=== PATIENT | female | born 1965 | race Caucasian/White ===

== ENCOUNTER 2017-04-26 09:08 | Emergency (ER) | payer MEDICAID ==
[~2017-04-26] VITALS: Ht 170.2 cm; Wt 59.0 kg
[2017-04-26 09:10] VITALS: Ht 170.2 cm; Wt 59.0 kg
[2017-04-26] MEDS ORDERED: OMEP40CA6 PO (10:13)
[2017-04-26] MEDS ORDERED: RANI150T9 PO (10:13)
--- NOTE | 2017-04-26 10:22 | ERD ---
ER Documentation Chief Complaint Chief Complaint LOSS OF APETITE [id number], AP, HX: depression start new meds HPI 52-year-old female complaining of epigastric abdominal pain 1 week. Epigastric irritation is constant, but the pain is worse after eating. She also burps acid when she has the pain. She reports being loss of appetite for the last week. Patient stated that she has history of depression, and start taking a new antidepressant medication 3 days ago. Patient is concerned that the new medication may be the cause of her pain. Denies chest pain or palpitations. Denies shortness of breath. Denies fever or chills. Denies vomiting or diarrhea. Denies suicidal or homicidal ideations. ROS All systems reviewed and are negative except as per history of present illness. Medications Home Meds Active Scripts Ranitidine Hcl* (Zantac*) 150 Mg Tablet, 150 MG PO BID Y for EPIGASTRIC PAIN, # 30 TAB Prov:ERNST GÓMEZ. 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 Allergies Allergies: Coded Allergies: Cefazolin (Verified Allergy, Mild, 04/09/09) PMhx/Soc History of Surgery: No Anesthesia Reaction: No Hx Neurological Disorder: No Hx Respiratory Disorders: No Hx Cardiac Disorders: No Hx Psychiatric Problems: Yes (depression and anxiety) Hx Miscellaneous Medical Probl: No Hx Alcohol Use: No Hx Substance Use: No Hx Tobacco Use: No Smoking Status: Never smoker Physical Exam Vitals Vital Signs Date Time Temp Pulse Resp B/P Pulse Ox O2 Delivery O2 Flow Rate FiO2 04/26/17 09:10 98.2 88 18 154/90 98 Physical Exam General: Well-developed, well-nourished, conscious and coherent, in no distress Skin: Warm and dry without rash, good texture and turgor Head: Normocephalic without evidence of trauma Eyes: Sclera and conjunctivae normal; pupils equal, round, and reactive to light; extraocular movements are intact Chest: Normal AP diameter. Good expansion without retractions. Nontender. Lungs are clear to auscultate bilaterally with good tidal volume Heart: Regular rate and rhythm. No murmur, rub, or gallops heard Abdomen: Soft, epigastric tenderness without masses, guarding, or rebound. Bowel sounds are active. No hepatosplenomegaly Extremities: Full range of motion. Good strength bilaterally. No clubbing, cyanosis, or edema. Peripheral pulses are intact. Sensation intact Neuro: Alert and oriented 4, GCS 15. Cranial nerves grossly intact. Motor and sensory exams nonfocal. Moves all extremities. Speech clear. Gait normal Results 24 hrs Current Medications Medications (Trade) Dose Ordered Sig/Jaziel Route PRN Reason Start Time Stop Time Status Last Admin Dose Admin Miscellaneous Medication (Gi Cocktail (2)) 40 ml ONCE ONCE PO 04/26/17 10:30 04/26/17 10:31 04/26/17 10:08 Procedures/MDM Well-appearing 52-year-old female presented to ED with epigastric abdominal pain 1 week. EKG: Normal sinus rhythm 65 bpm, left axis. No ST segment elevation or depression. No ectopic beats. No QT prolongation. RSR prime pattern in lead V1. No other EKG abnormalities. EKG read by Dr. Han. Patient does not have any right upper or right lower quadrant tenderness on palpation. I have low suspicion for acute cholecystitis, appendicitis, pancreatitis, no other acute abdomen. I also have low suspicion for acute coronary syndrome. Patient reports improvement of epigastric pain after GI cocktail. Patient appears well, stable for discharge and outpatient management. Medical decision making shared with patient and family. Education provided to patient and family. Patient and family expressed understanding of the plan. Medications on discharge: Omeprazole, ranitidine. Follow-up: Primary care provider in 2-3 days or return to ED if worse. Disclaimer: Inadvertent spelling and grammatical errors are likely due to EHR/ dictation software use and do not reflect on the overall quality of patient care. Also, please note that the electronic time recorded on this note does not necessarily reflect the actual time of the patient encounter. Departure Diagnosis: Primary Impression: Epigastric abdominal pain Condition: Stable Patient Instructions: Epigastric Pain (Uncertain Cause) Additional Instructions: Llame al doctor MAANA y [place] aelx DELILAH PARA DENTRO DE 2-3 BISHOP.Dgale a la secretaria que nosotros le instruimos hacer esta delilah.Avise o llame si morales condicin se empeora antes de la delilah. Regresa aqui si peor o no mejor. ERNST GÓMEZ NP Apr 26, 2017 10:22
[2017-04-26] MEDS ORDERED: LIDOCAINE/MYLANTA 40 ML BTL PO ONE (10:30)
== END 2017-04-26 10:30 | disposition home or self-care (01) ==
LOC: FTE 09:08
DX: R10.13 Epigastric pain (principal)
CPT/HCPCS: 93005; Z7502; Z7610